=== PATIENT | female | born 1975 | race Caucasian/White ===

== ENCOUNTER 2018-03-02 11:52 | Inpatient (IN) ==
--- NOTE | 2018-03-02 12:27 | Emergency Department Note ---
Disposition Clinical Impression: Abscess of skin or subcutaneous tissue, Cellulitis Disposition: Admitted As Inpatient Condition: Fair Referrals: Caroline Calderón, CARMELLA [Primary Care Provider] - Forms: ED Satisfaction Letter Time of Disposition: 15:23 Skin/Abscess/FB HPI Chief complaint: ED Extremity Problem,Nontraumatic Stated complaint: left hand abscess Time Seen by Provider: 03/02/18 11:59 HPI Narrative: 42yo female with history of IV drug use, anxiety, depression presented to [facility] complaining of left hand pain and swelling. She reported that she was seen at urgent care around 02/02/2018 and was given doxycycline for what they diagnosed her with as cellulitis however, the swelling and redness continued to worsen. She was seen by her PCP 2 days ago and was told to go to [facility] ED to be admitted for IV antibiotics. She reports the swelling has improved however the redness and pain has worsened. She has new lesions she noticed today on the swollen hand. She is unable to completely close her hand or move her fingers due to the pain. Patient denies fever, chills, chest pain, shortness of breath, efficient change, abdominal pain, nausea, melena. 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 She still currently injects her Suboxone using IV. Of note, she reported in winter at [facility] she had been diagnosed with MRSA bacteremia and endocarditis for which she spent 3 months in hospital receiving IV antibiotics. She has had abscesses in the past and her armpit and popliteal region for which required incision and drainage and PO antibiotics. Home Medications Medication Instructions Recorded Confirmed FLUoxetine HCl [PROzac] 60 mg PO DAILY 02/12/18 02/12/18 HydrOXYzine Pamoate [Vistaril] 50 mg PO TID 02/12/18 02/12/18 Pantoprazole Sodium [Protonix] 40 mg PO DAILY 02/12/18 02/12/18 Quetiapine Fumarate [Seroquel] 200 mg PO BID 02/12/18 02/12/18 Gabapentin [Neurontin] 600 mg PO TID 03/02/18 03/02/18 Quetiapine Fumarate [SEROquel] 100 mg PO QAM 03/02/18 03/02/18 Allergies Allergy/AdvReac Type Severity Reaction Status Date / Time cefdinir [From Omnicef] Allergy Anaphylaxis Verified 03/02/18 17:12 promethazine [From Phenergan] Allergy Rash Verified 02/12/18 16:26 All systems ED: reviewed and negative except as stated. Review of Systems: As Per HPI Constitutional: Denies: fever, chills, weakness Eyes: Denies: vision change Cardiovascular: Denies: chest pain, palpitations Respiratory: Denies: cough, dyspnea, wheezes Gastrointestinal: Denies: abdominal pain, nausea, vomiting, diarrhea, melena Genitourinary: Denies: urgency, dysuria Integumentary: Reports: as per HPI, lesions, other (Left hand swelling, redness , pain, decreased range of motion) Neurological: Denies: headache Hematological/Lymphatic: Denies: easy bleeding Past Medical History - Past Medical History Medical history: Reports: GERD, other (Endocarditis) Surgical history: Reports: cholecystectomy, hysterectomy Psychiatric history: Reports: anxiety, bipolar, depression, schizophrenia 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 Absent: wheezes - Cardiovascular Cardiovascular exam: Present: regular rate, normal rhythm. Absent: systolic murmur - Abdominal Exam Abdominal exam: Present: soft, Non-Tender, normal bowel sounds - Extremities Exam Extremities exam: Absent: tenderness - Neurological Exam Neurological exam: Present: alert, oriented X3 - Psychiatric Psychiatric exam: Present: normal affect, normal mood - Skin Skin exam: Present: dry, erythema, other (Left dorsal surface, 3rd and 4th phalanx erythematous and edematous. Fluctuant lesion on left dorsal hand.) Course Course Narrative: 42yo female with history of IV drug use, anxiety, depression presented to [facility] complaining of left hand pain and swelling since 2017. She has a history of MRSA bacteremia with endocarditis and abscesses. She denies fever, chills, chest pain, shortness of breath, abdominal pain. She has decreased range of motion of left hand. Differential includes septic joint , abscess, cellulitis. Will give her IV vancomycin and IV fluids. Will order x -ray of left hand, CBC, BMP, blood cultures, lactic acid. Will consult orthopedic surgery and plan to admit due to high risk with history and clinical manifestations concerning for septic joint. - Reevaluation(s) Reevaluation #1: CBC and BMP unremarkable. And x-ray demonstrating diffuse left-hand tissue edema. Awaiting hand CT. Time: 12:00 Vital Signs Temperature 98.2 F 03/02/18 11:54 Pulse Rate 95 03/02/18 11:54 Respiratory Rate 16 03/02/18 11:54 Blood Pressure 118/81 03/02/18 11:54 O2 Sat by Pulse Oximetry 96 03/02/18 11:54 Temperature 98.2 F 03/02/18 12:28 Pulse Rate 95 03/02/18 12:28 Respiratory Rate 16 03/02/18 12:28 Blood Pressure 118/81 03/02/18 12:28 O2 Sat by Pulse Oximetry 96 03/02/18 12:28 Oxygen Delivery Oxygen Delivery Room Air Skin/Abscess/Foreign Body - MDM Narrative Medical decision making narrative: 42yo female with history of IV drug use, anxiety, depression presented to [facility] complaining of left hand pain and swelling since 2017. She has a history of MRSA bacteremia with endocarditis and abscesses. She denies fever, chills, chest pain, shortness of breath, abdominal pain. She has decreased range of motion of left hand. Differential includes septic joint , abscess, cellulitis, acute tenosynovitis. CBC, BMP, lactic acid unremarkable. Blood cultures Hand CT demonstrating dorsal surface cellulitis with no acute osseous abnormality. Despite and CT demonstrated no acute osseous abnormality there is still concern for acute tenosynovitis that she has decreased range of motion of her fingers and swelling. Patient was given IV vancomycin. Orthopedic surgery was consulted and evaluated the patient in the ED, they reportedly she does not need surgical intervention at this time but will follow along. Hospitalist accepted admission of the patient and requested that we give her dose of IV Zosyn. - Differential Diagnosis Likely: abscess of skin or subcutaneous tissue, cellulitis - Medical Records Medical records reviewed: Yes I reviewed the patient's medical records. - Lab Data Lab results reviewed: Yes I reviewed the patient's lab results. Result diagrams: 03/02/18 13:15 03/02/18 13:15 Lab Results 03/02/18 03/02/18 03/02/18 Range/Units 13:15 13:15 13:15 WBC 10.3 (4.3-11.1) K/mcL RBC 5.20 H (3.82-4.97) M/mcL Hgb 14.0 (11.5-15.4) g/dL Hct 43.4 (35.3-44.9) % MCV 83.5 (83.0-100.0) fL MCH 26.9 L (28.0-33.3) pg MCHC 32.3 (31.6-35.5) g/dL RDW 14.0 (11.5-14.5) % Plt Count 274 (140-400) K/mcL MPV 10.4 (9.4-12.4) fL Immature Gran % 0.2 (0-4) % Seg Neutrophils % 78.1 % Lymphocytes % 14.3 % Monocytes % 4.0 % Eosinophils % 3.0 % Basophils % 0.4 % Neutrophils # 8.0 (1.6-8.9) K/mcL Lymphocytes # 1.5 (0.6-4.6) K/mcL Monocytes # 0.4 (0.0-1.3) K/mcL Eosinophils # 0.3 (0.0-0.6) K/mcL Basophils # 0.0 (0.0-0.2) K/mcL ESR (0-15) mm/hr Sodium 139 (136-145) mEq/L Potassium 3.0 L (3.5-5.1) mEq/L Chloride 102 (98-107) mEq/L Carbon Dioxide 31 H (23-29) mEq/L BUN 9 (6-20) mg/dL Creatinine 0.63 (0.60-1.20) mg/dL Est GFR ( Amer) > 60 (> 60) Est GFR (Non-Af Amer) > 60 (> 60) BUN/Creatinine Ratio 14 (6-26) Glucose 107 H (70-105) mg/dL Calculated Osmolality 287 (280-300) Lactic Acid 1.4 (0.5-2.2) mmol/L Calcium 9.5 (8.6-10.3) mg/dL 03/02/18 Range/Units 13:15 WBC (4.3-11.1) K/mcL RBC (3.82-4.97) M/mcL Hgb (11.5-15.4) g/dL Hct (35.3-44.9) % MCV (83.0-100.0) fL MCH (28.0-33.3) pg MCHC (31.6-35.5) g/dL RDW (11.5-14.5) % Plt Count (140-400) K/mcL MPV (9.4-12.4) fL Immature Gran % (0-4) % Seg Neutrophils % % Lymphocytes % % Monocytes % % Eosinophils % % Basophils % % Neutrophils # (1.6-8.9) K/mcL Lymphocytes # (0.6-4.6) K/mcL Monocytes # (0.0-1.3) K/mcL Eosinophils # (0.0-0.6) K/mcL Basophils # (0.0-0.2) K/mcL ESR 47 H (0-15) mm/hr Sodium (136-145) mEq/L Potassium (3.5-5.1) mEq/L Chloride (98-107) mEq/L Carbon Dioxide (23-29) mEq/L BUN (6-20) mg/dL Creatinine (0.60-1.20) mg/dL Est GFR ( Amer) (> 60) Est GFR (Non-Af Amer) (> 60) BUN/Creatinine Ratio (6-26) Glucose (70-105) mg/dL Calculated Osmolality (280-300) Lactic Acid (0.5-2.2) mmol/L Calcium (8.6-10.3) mg/dL - Radiology Data Radiology results reviewed: Yes I reviewed the patient's radiology results. Hand X-Ray 03/02/18 12:40 IMPRESSION: Diffuse nonspecific soft tissue edema. No acute osseous abnormality. D/ / 03/02/2018 12:56:56 Cristopher Trejo MD / bcarter Interpreting Provider: Cristopher Trejo MD Hand CT 03/02/18 13:20 IMPRESSION: 1. Dorsal subcutaneous fat stranding compatible with cellulitis. No drainable fluid collection. 2. No acute osseous abnormality. D/ / Dex Feliz MD / Dex Feliz MD Interpreting Provider: Dex Feliz MD
[2018-03-02] MEDS ORDERED: 0.9 % Sodium Chloride 1,000 ML IVC ONE (12:39)
[2018-03-02 13:28] LABS: Basophils % 0.4 %; Eosinophils # 0.3 K/mcL (0.0-0.6); Hematocrit 43.4 % (35.3-44.9); Immature Granulocytes % 0.2 % (0-4); Lymphocytes # 1.5 K/mcL (0.6-4.6); Lymphocytes % 14.3 %; Mean Corpuscular HGB Conc 32.3 g/dL (31.6-35.5); Mean Corpuscular Hemoglobin 26.9 pg (28.0-33.3); Mean Corpuscular Volume 83.5 fL (83.0-100.0); Mean Platelet Volume 10.4 fL (9.4-12.4); Monocytes # 0.4 K/mcL (0.0-1.3); Platelet Count 274 K/mcL (140-400); Segmented Neutrophils % 78.1 %
[2018-03-02 13:54] LABS: BUN/Creatinine Ratio 14 (6-26); Blood Urea Nitrogen 9 mg/dL (6-20); Calcium 9.5 mg/dL (8.6-10.3); Carbon Dioxide 31 mEq/L (23-29); Chloride 102 mEq/L (98-107); Glucose 107 mg/dL (70-105); Osmolality,Calculated 287 (280-300); Sodium 139 mEq/L (136-145); eGFR For African Americans > 60 (> 60); eGFR For Non-African Americans > 60 (> 60)
--- NOTE | 2018-03-02 14:53 | Cat Scan Report ---
EXAMINATION: CT OF THE LEFT HAND WITHOUT CONTRAST 03/02/2018 2:45 pm TECHNIQUE: CT of the left hand was performed without the administration of intravenous contrast. Multiplanar reformatted images are provided for review. Dose modulation, iterative reconstruction, and/or weight based adjustment of the mA/kV was utilized to reduce the radiation dose to as low as reasonably achievable. COMPARISON: Left hand radiographs 03/02/2018. HISTORY ORDERING SYSTEM PROVIDED HISTORY: Left hand swollen, erythematous, concern for septic zeynep Additional tech notes: 15 Ongoing evaluation. FINDINGS: Bones: No fracture or dislocation. No suspicious lytic or blastic osseous lesion. Soft Tissue: Dorsal subcutaneous fat stranding of the distal forearm, wrist, and hand. No well-defined drainable fluid collection. No soft tissue gas or radiopaque foreign body. The visualized musculature is unremarkable. The visualized tendons are grossly intact without evidence of tenosynovitis. The neurovascular structures are unremarkable. The carpal tunnel is within normal limits. Joint: Mild 1st carpometacarpal degenerative changes. No evidence of joint effusion. No osseous erosion.
[2018-03-02 15:45] LABS: C-Reactive Protein 49 mg/L (Less than 10)
--- NOTE | 2018-03-02 15:51 | Orthopedic Consult Note ---
Date of Encounter: 03/02/18 Time of Encounter: 15:47 Assessment and Plan (1) Cellulitis of left hand Current Visit: Yes Status: Acute No obvious abscess or drainable fluid collection on CT. IV antibiotics as per hospitalist. No current plans for surgical intervention. Will reevaluate tomorrow. History of Present Illness HPI: Ms. Feliz is a 42 year old female history of IV drug use, anxiety, depression, bipolar presented to ED complaining of left hand pain and swelling for several weeks. She reported that she was previously seen at urgent care was given doxycycline for cellulitis. Swelling and redness worsened and so she was instructed to go to hospital for admission for IV antibiotics. Pain and swelling are over the dorsal hand and middle finger. Has difficulty closing hand and flexing fingers because of the pain. She is unable to completely close her hand or move her fingers due to the pain. Patient denies fever, chills, chest pain, shortness of breath. States that she is recovering IVDA but still injects her suboxone IV. Past Med Surg Social Fam HX - Past Medical History Medical history: GERD, other (Endocarditis) Additional medical history: endocarditis 2016 Psychiatric history: anxiety, bipolar, depression, schizophrenia - Past Surgical History Surgical History: cholecystectomy, hysterectomy - Social History Smoking Status: Current every day smoker Smokeless Tobacco Status: No Alcohol use: none Drug use: methamphetamine, IV Drug Use, other (Heroin) - Family History Mother Living Status: Still Living Hx Family Cardiac Disorders: Yes (hypertension) Hx Family Respiratory Disorders: No Hx Family Cancer: No Hx Family GI Disorders: No Hx Family Endocrine Disorder: Yes (Diabetes) Hx Family Neuromuscular Disorders: No Hx Family Neurologic Disorders: No Hx Family HEENT Disorders: No Hx Family Autoimmune Disorders: No Father Living Status: Still Living Hx Family Cardiac Disorders: No Hx Family Respiratory Disorders: No Hx Family Cancer: No Hx Family GI Disorders: No Hx Family Endocrine Disorder: No Hx Family Neuromuscular Disorders: No Hx Family Neurologic Disorders: No Hx Family HEENT Disorders: No Hx Family Autoimmune Disorders: No Medications and Allergies FLUoxetine HCl [PROzac] 60 mg PO DAILY 02/12/18 [History] HydrOXYzine Pamoate [Vistaril] 50 mg PO TID 02/12/18 [History] Pantoprazole Sodium [Protonix] 40 mg PO DAILY 02/12/18 [History] Quetiapine Fumarate [Seroquel] 200 mg PO HS 02/12/18 [History] Gabapentin [Neurontin] 600 mg PO TID 03/02/18 [History] Quetiapine Fumarate [SEROquel] 100 mg PO QAM 03/02/18 [History] 3 Allergy/AdvReac Type Severity Reaction Status Date / Time promethazine [From Phenergan] Allergy Rash Verified 02/12/18 16:26 All Systems Reviewed: The remainder of the systems were reviewed and are negative other than as noted in HPI Physical Exam - Constitutional Vitals: Temp Pulse Resp BP Pulse Ox 98.2 F 77 18 105/64 98 03/02/18 12:28 03/02/18 14:41 03/02/18 14:41 03/02/18 14:41 03/02/18 14:41 Exam: Consult Exam: Constitutional -Vitals reviewed -The patient is well developed and well nourished. Psychiatric -The patient is alert and oriented x 3. Respiratory: -Respiratory effort normal Abdomen: -Soft abdomen -Non tender -Non distended: Left upper extremity: -No deformities. Dorsal swelling over hand. TTP over dorsal hand and index and middle fingers. -Erythema over middle and index fingers. No tenderness along flexor sheath -No significant pain with passive motion of the shoulder, elbow, wrist, and fingers within the limits of the bed. -Able to make an "OK" sign, cross the index and long fingers, and extend the thumb. -Sensation grossly intact to light touch throughout the median, radial, and ulnar distributions. -Radial pulse is present; Fingers have good capillary refill. Right upper extremity: -No deformities. The overlying skin is intact. No obvious signs of acute trauma. -No tenderness to palpation throughout. -No significant pain with passive motion of the shoulder, elbow, wrist, and fingers within the limits of the bed. -Able to make an "OK" sign, cross the index and long fingers, and extend the thumb. -Sensation grossly intact to light touch throughout the median, radial, and ulnar distributions. -Radial pulse is present; Fingers have good capillary refill. Left lower extremity: -No deformities. The overlying skin is intact. No obvious signs of acute trauma. -No tenderness to palpation throughout. -No pain with passive motion of the hip, knee, ankle, and toes within the limits of the bed. -No pain with axial loading of the thigh. -Able to dorsiflex and plantarflex the ankle and toes. -Sensation is grossly intact to light touch throughout the sural, saphenous, superficial peroneal, and deep peroneal distributions. -Toes have good capillary refill. Right lower extremity: -No deformities. The overlying skin is intact. No obvious signs of acute trauma. -No tenderness to palpation throughout. -No pain with passive motion of the hip, knee, ankle, and toes within the limits of the bed. -No pain with axial loading of the thigh. -Able to dorsiflex and plantarflex the ankle and toes. -Sensation is grossly intact to light touch throughout the sural, saphenous, superficial peroneal, and deep peroneal distributions. -Toes have good capillary refill. CT of L hand reviewed and shows subcutaneous dorsal fat stranding of hand without obvious abscess. No soft tissue gas. No bony destruction. Results - Labs Result Diagrams: 03/02/18 13:15 03/02/18 13:15 Labs: Abnormal lab results RBC 5.20 M/mcL (3.82-4.97) H 03/02/18 13:15 MCH 26.9 pg (28.0-33.3) L 03/02/18 13:15 ESR 47 mm/hr (0-15) H 03/02/18 13:15 Potassium 3.0 mEq/L (3.5-5.1) L 03/02/18 13:15 Carbon Dioxide 31 mEq/L (23-29) H 03/02/18 13:15 Glucose 107 mg/dL (70-105) H 03/02/18 13:15 C-Reactive Protein 49 mg/L (Less than 10) H 03/02/18 13:15 All other labs normal. - Diagnostic results Wrist/Hand x-ray: report reviewed, image reviewed Wrist/Hand CT: report reviewed, image reviewed Consult Discharge Plan - Plan Referrals: Caroline Calderón, SENIOR LEAD DEVELOPER [Primary Care Provider] -
[2018-03-02] MEDS ORDERED: Piperacillin/Tazobactam 3.375 GM in 0.9 % Sodium Chloride Mini Bag 100 ML IVPB SCH (16:00)
--- NOTE | 2018-03-02 16:06 | Emergency Department Note ---
Disposition Clinical Impression: Abscess of skin or subcutaneous tissue, Cellulitis Disposition: Admitted As Inpatient Condition: Fair General Adult HPI - General Chief complaint: ED Extremity Problem,Nontraumatic Stated complaint: left hand abscess Time Seen by Provider: 03/02/18 11:59 Source: patient Limitations: no limitations, language barrier - History of Present Illness Pain Scale: 8 - Related Data Home Medications Medication Instructions Recorded Confirmed FLUoxetine HCl [PROzac] 60 mg PO DAILY 02/12/18 03/02/18 HydrOXYzine Pamoate [Vistaril] 50 mg PO TID 02/12/18 03/02/18 Pantoprazole Sodium [Protonix] 40 mg PO DAILY 02/12/18 03/02/18 Quetiapine Fumarate [Seroquel] 200 mg PO HS 02/12/18 03/02/18 Gabapentin [Neurontin] 600 mg PO TID 03/02/18 03/02/18 Quetiapine Fumarate [SEROquel] 100 mg PO QAM 03/02/18 03/02/18 Allergies Allergy/AdvReac Type Severity Reaction Status Date / Time cefdinir [From Omnicef] Allergy Anaphylaxis Verified 03/02/18 17:12 promethazine [From Phenergan] Allergy Rash Verified 02/12/18 16:26 Constitutional: Denies: fever, chills, weakness Eyes: Denies: vision change Cardiovascular: Denies: chest pain, palpitations Respiratory: Denies: cough, dyspnea, wheezes Gastrointestinal: Denies: abdominal pain, nausea, vomiting, diarrhea, melena Genitourinary: Denies: urgency, dysuria Integumentary: Reports: as per HPI, lesions, other (Left hand swelling, redness , pain, decreased range of motion) Neurological: Denies: headache Past Medical History - Past Medical History Medical history: Reports: GERD, other (Endocarditis) Surgical history: Reports: cholecystectomy, hysterectomy Psychiatric history: Reports: anxiety, bipolar, depression, 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 - Social History Smoking Status: Current every day smoker Smokeless Tobacco Status: No Alcohol use: Reports: none Drug use: Reports: methamphetamine, IV Drug Use, other (Heroin) Physical Exam - General Limitations: no limitations, language barrier General appearance: alert, in no apparent distress Course Vital Signs Temperature 98.2 F 03/02/18 11:54 Pulse Rate 95 03/02/18 11:54 Respiratory Rate 16 03/02/18 11:54 Blood Pressure 118/81 03/02/18 11:54 O2 Sat by Pulse Oximetry 96 03/02/18 11:54 Temperature 98.6 F 03/02/18 16:57 Pulse Rate 82 03/02/18 16:57 Respiratory Rate 14 03/02/18 16:57 Blood Pressure 137/80 03/02/18 16:57 O2 Sat by Pulse Oximetry 98 03/02/18 16:57 Oxygen Delivery Oxygen Delivery Nasal Cannula Medical Decision Making - Lab Data Result diagrams: 03/02/18 13:15 03/02/18 13:15 Lab Results 03/02/18 03/02/18 03/02/18 Range/Units 13:15 13:15 13:15 WBC 10.3 (4.3-11.1) K/mcL RBC 5.20 H (3.82-4.97) M/mcL Hgb 14.0 (11.5-15.4) g/dL Hct 43.4 (35.3-44.9) % MCV 83.5 (83.0-100.0) fL MCH 26.9 L (28.0-33.3) pg MCHC 32.3 (31.6-35.5) g/dL RDW 14.0 (11.5-14.5) % Plt Count 274 (140-400) K/mcL MPV 10.4 (9.4-12.4) fL Immature Gran % 0.2 (0-4) % Seg Neutrophils % 78.1 % Lymphocytes % 14.3 % Monocytes % 4.0 % Eosinophils % 3.0 % Basophils % 0.4 % Neutrophils # 8.0 (1.6-8.9) K/mcL Lymphocytes # 1.5 (0.6-4.6) K/mcL Monocytes # 0.4 (0.0-1.3) K/mcL Eosinophils # 0.3 (0.0-0.6) K/mcL Basophils # 0.0 (0.0-0.2) K/mcL ESR (0-15) mm/hr Sodium 139 (136-145) mEq/L Potassium 3.0 L (3.5-5.1) mEq/L Chloride 102 (98-107) mEq/L Carbon Dioxide 31 H (23-29) mEq/L BUN 9 (6-20) mg/dL Creatinine 0.63 (0.60-1.20) mg/dL Est GFR ( Amer) > 60 (> 60) Est GFR (Non-Af Amer) > 60 (> 60) BUN/Creatinine Ratio 14 (6-26) Glucose 107 H (70-105) mg/dL Calculated Osmolality 287 (280-300) Lactic Acid 1.4 (0.5-2.2) mmol/L Calcium 9.5 (8.6-10.3) mg/dL C-Reactive Protein 49 H (Less than 10) mg/L 03/02/18 Range/Units 13:15 WBC (4.3-11.1) K/mcL RBC (3.82-4.97) M/mcL Hgb (11.5-15.4) g/dL Hct (35.3-44.9) % MCV (83.0-100.0) fL MCH (28.0-33.3) pg MCHC (31.6-35.5) g/dL RDW (11.5-14.5) % Plt Count (140-400) K/mcL MPV (9.4-12.4) fL Immature Gran % (0-4) % Seg Neutrophils % % Lymphocytes % % Monocytes % % Eosinophils % % Basophils % % Neutrophils # (1.6-8.9) K/mcL Lymphocytes # (0.6-4.6) K/mcL Monocytes # (0.0-1.3) K/mcL Eosinophils # (0.0-0.6) K/mcL Basophils # (0.0-0.2) K/mcL ESR 47 H (0-15) mm/hr Sodium (136-145) mEq/L Potassium (3.5-5.1) mEq/L Chloride (98-107) mEq/L Carbon Dioxide (23-29) mEq/L BUN (6-20) mg/dL Creatinine (0.60-1.20) mg/dL Est GFR ( Amer) (> 60) Est GFR (Non-Af Amer) (> 60) BUN/Creatinine Ratio (6-26) Glucose (70-105) mg/dL Calculated Osmolality (280-300) Lactic Acid (0.5-2.2) mmol/L Calcium (8.6-10.3) mg/dL C-Reactive Protein (Less than 10) mg/L Attestation Statement - Attestation Attestation: I examined this patient and my medical decision-making was reviewed with the Resident Physician, Dr. Cordoba. I agree with the documented findings, disposition and treatment plan as described except to the extent set forth below. Patient is a 42-year-old white female with a history of IV drug abuse, prior history of endocarditis and bacteremia secondary to IV drug use remotely, who presents to the emergency department today with complaints of left hand pain swelling and infection that she has had intermittently for the past 4 weeks. Patient was initially seen at an urgent care a month ago and prescribed doxycycline for an isolated skin abscess to the dorsum of her left hand. Patient states that she did incise this at home herself to help with drainage in that it has improved despite that she continue to have soft tissue swelling and erythema with warmth to touch to the dorsum of the entire left hand extending into the third and fourth digits of her left fingers. Third fourth fingers are diffusely swollen she has erythema to both the dorsal surface as well as the palmar surface at the joint of the third finger. Patient with fluctuant area overlying her third dorsal MCP area. Patient has difficulty with full flexion and pain on passive extension of both third and fourth fingers. Patient is right-hand dominant. Patient states these changes been present for the past 48 hours and gradually worsened. She was seen by her doctor 2 days ago and recommended she come to the emergency department at that time but did not come for evaluation until today. She denies any fevers or chills, no other associated symptoms. I agree with patient's physical exam findings as documented. Vital signs are stable she is hemodynamically stable in no acute distress. It is noted the patient had track rubi to both bilateral antecubital areas from injecting Suboxone. No surrounding erythema or abscesses are seen in these areas. Patient had an IV saline well-established blood cultures were obtained and IV antibiotics were initiated for possible joint infection versus flexor tenosynovitis. Patient had initial plain film imaging of the hand which was negative for any bony injury or foreign body. We proceeded with a CT of the left hand which shows evidence of extensive cellulitis but no evidence at this time of osteomyelitis or tenosynovitis. Lab evaluation is unremarkable with the exception of mild elevation in sedimentation rate and CRP. Case was discussed with Dr. Uriostegui who is on-call for orthopedics is been consulate to see the patient from the ED. Actually came down and saw the patient here. Patient was admitted to the hospitalist service for further evaluation and management. Patient remains hemodynamically stable at this time.
[2018-03-02] MEDS ORDERED: Acetaminophen 325 MG TABLET PO PRN (16:13)
[2018-03-02] MEDS ORDERED: Naloxone 0.4 MG/ML INJ IVP PRN (16:13)
[2018-03-02] MEDS ORDERED: Ondansetron 4 MG/2 ML VIAL IVP PRN (16:13)
[2018-03-02] MEDS ORDERED: hydrOXYzine pamoate 25 MG CAPSULE PO PRN (16:16)
--- NOTE | 2018-03-02 17:03 | Internal Med History&Physical ---
Date of Encounter: 03/02/18 Time of Encounter: 15:45 Internal Medicine - H&P: HPI Chief complaint: Left hand abscess and cellulitis Admitted From: Emergency Dept Plans for Post Hospital Care: Home History of present illness: Ms. 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 Patient stated almost 3 to 4 weeks ago she noticed a small swelling on the left dorsum of the hand and base of 3rd and 4th fingers. Patient did follow-up with urgent care center where they placed her on doxycycline a week ago. However her symptoms have not improved and they are worsening now. Patient denied of any fever. She denied of any active IV drug usage. Past Med Surg Social Fam HX - Past Medical History Medical history: GERD, other (Endocarditis) Additional medical history: endocarditis 2015 Psychiatric history: anxiety, bipolar, depression, schizophrenia - Past Surgical History Surgical History: cholecystectomy, hysterectomy - Social History Smoking Status: Current every day smoker Smokeless Tobacco Status: No Alcohol use: none Drug use: methamphetamine, IV Drug Use, other (Heroin) - Family History Mother Living Status: Still Living Hx Family Cardiac Disorders: Yes (hypertension) Hx Family Respiratory Disorders: No Hx Family Cancer: No Hx Family GI Disorders: No Hx Family Endocrine Disorder: Yes (Diabetes) Hx Family Neuromuscular Disorders: No Hx Family Neurologic Disorders: No Hx Family HEENT Disorders: No Hx Family Autoimmune Disorders: No Father Living Status: Still Living Hx Family Cardiac Disorders: No Hx Family Respiratory Disorders: No Hx Family Cancer: No Hx Family GI Disorders: No Hx Family Endocrine Disorder: No Hx Family Neuromuscular Disorders: No Hx Family Neurologic Disorders: No Hx Family HEENT Disorders: No Hx Family Autoimmune Disorders: No Internal Medicine - H&P: Meds FLUoxetine HCl [PROzac] 60 mg PO DAILY 02/12/18 [History] HydrOXYzine Pamoate [Vistaril] 50 mg PO TID 02/12/18 [History] Pantoprazole Sodium [Protonix] 40 mg PO DAILY 02/12/18 [History] Quetiapine Fumarate [Seroquel] 200 mg PO HS 02/12/18 [History] Gabapentin [Neurontin] 600 mg PO TID 03/02/18 [History] Quetiapine Fumarate [SEROquel] 100 mg PO QAM 03/02/18 [History] 3 Allergy/AdvReac Type Severity Reaction Status Date / Time cefdinir [From Omnicef] Allergy Anaphylaxis Verified 03/02/18 17:12 promethazine [From Phenergan] Allergy Rash Verified 02/12/18 16:26 All Systems PM: A 10-system review of systems was performed and is negative for pertinent findings except as documented above in the HPI. Review of systems: All the systems are reviewed everything is benign except the systems and symptoms I mentioned in the history of present illness - Constitutional Vitals: Temp Pulse Resp BP Pulse Ox 98.2 F 77 18 125/98 98 03/02/18 16:00 03/02/18 14:41 03/02/18 16:00 03/02/18 16:00 03/02/18 14:41 General appearance: Present: A&O X 3, no acute distress, answers questions appropriately - Head Head exam: Present: atraumatic, normal inspection - Neck Neck exam general surgery: Present: supple - Respiratory Respiratory exam: Present: CTAB. Absent: accessory muscle use, rales, rhonchi, wheezes - Cardiovascular Cardiovascular exam: Present: RRR, +S1, +S2. Absent: diastolic murmur, gallop, rubs, systolic murmur - GI/Abdominal GI/Abdominal exam: Present: normal bowel sounds, soft. Absent: rebound, rigid, tenderness - Extremities Exam Extremities exam: Absent: calf tenderness, pedal edema, tenderness Additional comments: She does have moderate swelling of the left wrist as well as significant ertyhema noticed. Small fluid collection noticed at the distal part and base of 3rd finger. Able to flex Okay with limited range of motion of the 3rd and 4th due to edema and swelling - Expanded Upper Extremities Exam Hand wrist exam: Present: erythema (Dorsum the left hand), swelling, tenderness. Absent: full ROM - Back Exam Back exam: Absent: CVA tenderness (L), CVA tenderness (R) - Neurological Exam Neurological exam: Present: alert, oriented X3 - Psychiatric Psychiatric exam: Present: normal affect, normal mood Internal Med - H&P Results - Labs CBC & Chem 7: 03/02/18 13:15 03/02/18 13:15 - Assessment and plan (1) Cellulitis of left hand Current Visit: Yes Status: Acute Assessment and plan: [facility]ray which showed diffuse nonspecific soft tissue edema no fractures noticed reviewed her CT of the hand showed mild 1st carpal metacarpal degenerative changes, no joint decision noticed. No osseous erosion noticed no fluid collection noticed ESR and CRP slightly elevated since patient has history of MRSA bacteremia in the past, will place her on isolation started on broad-spectrum antibiotic vancomycin and Zosyn Pt was evaluated b Ortho, No I & D recommend at this point cont local wound care, hand elevation, warm / cold compressions (2) IV drug abuse Current Visit: No Status: Chronic Assessment and plan: Under remission patient used to be on Suboxone therapy however now she is off the Suboxone therapy too (3) Anxiety Current Visit: Yes Status: Acute Assessment and plan: Resumed home medications (4) Tobacco dependence Current Visit: Yes Status: Acute Assessment and plan: Counseled to quit smoking placed on nicotine patch (5) Hepatitis C Current Visit: No Status: Acute Assessment and plan: Need to follow with PCP as an outpatient Qualifiers: Viral hepatitis chronicity: chronic Hepatic coma status: without hepatic coma Qualified Code(s): B18.2 - Chronic viral hepatitis C - Time Spent With Patient Total time spent is greater than 50% in coordination of care (as documented) at patient's floor/unit and/or counseling patient:
[2018-03-02] MEDS: Piperacillin/Tazobactam 3.375 GM in 0.9 % Sodium Chloride Mini Bag 100 ML IVPB SCH (17:50)
[2018-03-02] MEDS: 0.9 % Sodium Chloride 1,000 ML IVC SCH (17:50)
[2018-03-02] MEDS: *HR* HYDROcodone/Acet 5/325 mg TABLET PO PRN (17:51)
[2018-03-02] MEDS: Gabapentin 300 MG CAPSULE PO SCH (19:48)
[2018-03-03 01:23] LABS: Basophils % 0.4 %; Eosinophils # 0.3 K/mcL (0.0-0.6); Eosinophils % 3.8 %; Hematocrit 38.3 % (35.3-44.9); Immature Granulocytes % 0.4 % (0-4); Lymphocytes # 1.6 K/mcL (0.6-4.6); Lymphocytes % 22.3 %; Mean Corpuscular HGB Conc 32.1 g/dL (31.6-35.5); Mean Corpuscular Hemoglobin 27.3 pg (28.0-33.3); Mean Corpuscular Volume 84.9 fL (83.0-100.0); Mean Platelet Volume 10.7 fL (9.4-12.4); Monocytes # 0.4 K/mcL (0.0-1.3); Monocytes % 6.2 %; Neutrophils # 4.7 K/mcL (1.6-8.9); Platelet Count 232 K/mcL (140-400); Red Blood Count 4.51 M/mcL (3.82-4.97); Segmented Neutrophils % 66.9 %
[2018-03-03 01:24] LABS: Hemoglobin 12.3 g/dL (11.5-15.4)
[2018-03-03 01:36] LABS: BUN/Creatinine Ratio 16 (6-26); Blood Urea Nitrogen 11 mg/dL (6-20); Calcium 8.3 mg/dL (8.6-10.3); Carbon Dioxide 24 mEq/L (23-29); Chloride 114 mEq/L (98-107); Glucose 97 mg/dL (70-105); Osmolality,Calculated 293 (280-300); Potassium 3.2 mEq/L (3.5-5.1); Sodium 142 mEq/L (136-145); eGFR For African Americans > 60 (> 60); eGFR For Non-African Americans > 60 (> 60)
[2018-03-03] MEDS: Piperacillin/Tazobactam 3.375 GM in 0.9 % Sodium Chloride Mini Bag 100 ML IVPB SCH ×3 (02:30→17:35)
[2018-03-03] MEDS: 0.9 % Sodium Chloride 1,000 ML IVC SCH (02:31)
[2018-03-03] MEDS: *HR* Enoxaparin 40 MG/0.4 ML SYRINGE SQ SCH (05:10)
[2018-03-03] MEDS: Gabapentin 300 MG CAPSULE PO SCH ×3 (10:03→19:26)
[2018-03-03] MEDS: *HR* HYDROcodone/Acet 5/325 mg TABLET PO PRN (10:04)
[2018-03-03] MEDS: FLUoxetine HCl Oral Soln 20 MG/5 ML UDC PO SCH (10:04)
[2018-03-03] MEDS: Nicotine 21 MG PATCH.TD24 TD SCH (10:05)
--- NOTE | 2018-03-03 11:47 | Orthopedics Progress Note ---
Date of Encounter: 03/03/18 Time of Encounter: 11:44 - Assessment and Plan (1) Cellulitis of left hand Current Visit: Yes Status: Acute Subjective Interval history: Still with erythema and fluctuant area over left middle finger MCP joint. Remainder over erythema improving. AFVSS GEN: NAD, AAOx3 LUE: Erythema and fluctuant area over left middle finger MCP joint. Able to passively and actively flex and extend digits with minimal pain DNVI with sensation and motor exam intact over M/R/U/AIN/PIN A/P: 42 yo F with L hand cellulitis With the persistent of the fluctuant area over the 3rd MCP, irrigation and excisional debridement of this area was performed this morning. The area was steriley prepped and draped with betadine. Incision was made over the abscess and the skin edges were sharply excised. No gross purulent material was expressed. Deep soft tissue adhesions were broken up. Cultures were taken. The wound was thoroughly irrigated with 1 L NS and packed open. Clean dressing then placed. She tolerated the procedure well. Continue IV antibiotics per hospitalist, follow ctx Daily dressing changes Ok for diet Objective Vital signs: Vital Signs Temp Pulse Resp BP Pulse Ox 03/03/18 10:31 98.9 F 80 18 109/67 98 03/03/18 09:55 95 03/03/18 06:31 98.8 F 69 16 120/79 95 03/03/18 00:40 98.4 F 88 12 119/73 96 03/02/18 18:44 98.4 F 86 14 120/74 93 03/02/18 16:57 98.6 F 82 14 137/80 98 Intake and Output 03/02/18 03/03/18 03/03/18 23:59 07:59 15:59 Intake Total 100 / 100 1350 / 1350 600 / 600 Balance 100 / 100 1350 / 1350 600 / 600 Intake: IV Fluids 100 / 100 1350 / 1350 0.9 % Sodium Chloride 1,000 ML 1000 / 1000 @ 125 mls/hr IVC .Q8H BEN Rx#: [id number] Zosyn 3.375 GM In 0.9 % Sodium 100 / 100 100 / 100 Chloride (Mini-Bag +) 100 ML @ 25 mls/hr IVPB Q8H BEN Rx#: [id number] Vancocin 1,000 MG In 0.9 % 250 / 250 Sodium Chloride 250 ML @ 167 mls/hr IVPB Q12H BEN Rx#: [id number] Oral 600 / 600 Other: Meal Breakfast Percent of Meal Consumed 100% # Voids 1 1 - Labs CBC & BMP: 03/03/18 01:05 03/03/18 01:05 Labs: Abnormal lab results MCH 27.3 pg (28.0-33.3) L 03/03/18 01:05 ESR 47 mm/hr (0-15) H 03/02/18 13:15 Potassium 3.2 mEq/L (3.5-5.1) L 03/03/18 01:05 Chloride 114 mEq/L (98-107) H 03/03/18 01:05 Calcium 8.3 mg/dL (8.6-10.3) L 03/03/18 01:05 C-Reactive Protein 49 mg/L (Less than 10) H 03/02/18 13:15 Consult Discharge Plan - Plan Referrals: Caroline Calderón, PROCESS EQUIPMENT OPERATOR [Primary Care Provider] -
--- NOTE | 2018-03-03 16:51 | Internal Med Progress Note ---
Date of Encounter: 03/03/18 Time of Encounter: 11:00 - Assessment and plan (1) Cellulitis of left hand Current Visit: Yes Status: Acute Assessment and plan: Left hand x-ray which showed diffuse nonspecific soft tissue edema no fractures noticed CT of the hand showed mild 1st carpal metacarpal degenerative changes, no joint decision noticed. Orthopedics consulted and decision and drainage with irrigation was done this morning and cultures taken. Will continue broad-spectrum antibiotics with vancomycin and Zosyn (2) Hepatitis C Current Visit: No Status: Acute Assessment and plan: Follow with PCP as an outpatient Qualifiers: Viral hepatitis chronicity: chronic Hepatic coma status: without hepatic coma Qualified Code(s): B18.2 - Chronic viral hepatitis C (3) IV drug abuse Current Visit: No Status: Chronic Assessment and plan: Under remission patient used to be on Suboxone therapy (4) Tobacco dependence Current Visit: Yes Status: Acute Assessment and plan: Nicotine replacement (5) Anxiety Current Visit: Yes Status: Acute Assessment and plan: Continue home medications - Time Spent With Patient Total time spent is greater than 50% in coordination of care (as documented) at patient's floor/unit and/or counseling patient: - Subjective Interval history: Patient with left hand discomfort status post incision and drainage by orthopedics this morning - Constitutional Vitals: Temp Pulse Resp BP Pulse Ox 98.5 F 77 16 117/53 94 03/03/18 15:28 03/03/18 15:28 03/03/18 15:28 03/03/18 15:28 03/03/18 15:28 General appearance: Present: A&O X 3, no acute distress, answers questions appropriately - Respiratory Respiratory exam: Present: CTAB. Absent: accessory muscle use, rales, rhonchi, wheezes - Cardiovascular Cardiovascular exam: Present: RRR, +S1, +S2. Absent: diastolic murmur, gallop, rubs, systolic murmur - Expanded Upper Extremities Exam Hand wrist exam: Present: swelling (Left hand edema) Internal Medicine: Result - Labs CBC & Chem 7: 03/03/18 01:05 03/03/18 01:05 Labs: Short CBC 03/03/18 Range/Units 01:05 WBC 7.1 (4.3-11.1) K/mcL Hgb 12.3 D (11.5-15.4) g/dL Hct 38.3 (35.3-44.9) % Plt Count 232 (140-400) K/mcL Neutrophils # 4.7 (1.6-8.9) K/mcL BMP 03/03/18 01:05 Sodium 142 Potassium 3.2 L Chloride 114 H Carbon Dioxide 24 BUN 11 Creatinine 0.70 Glucose 97 Calcium 8.3 L Consult Discharge Plan - Plan Referrals: Caroline Calderón, GOLF COURSE PATROLLER [Primary Care Provider] -
[2018-03-04] MEDS: Piperacillin/Tazobactam 3.375 GM in 0.9 % Sodium Chloride Mini Bag 100 ML IVPB SCH ×3 (01:49→18:18)
[2018-03-04] MEDS: *HR* Enoxaparin 40 MG/0.4 ML SYRINGE SQ SCH (04:48)
--- NOTE | 2018-03-04 09:10 | Orthopedics Progress Note ---
Date of Encounter: 03/04/18 Time of Encounter: 09:08 - Assessment and Plan (1) Cellulitis of left hand Current Visit: Yes Status: Acute Subjective Interval history: Erythema and pain improving. AFVSS GEN: NAD, AAOx3 LUE: Erythema over middle finger MCP joint improving. Able to passively and actively flex and extend digits with minimal pain DNVI with sensation and motor exam intact over M/R/U/AIN/PIN A/P: 42 yo F with L hand cellulitis Continue IV antibiotics per hospitalist, follow ctx Daily dressing changes Ok for diet, no plans for further surgery Objective Vital signs: Vital Signs Temp Pulse Resp BP Pulse Ox 03/04/18 07:41 95 03/04/18 06:41 98.0 F 75 16 116/73 95 03/03/18 23:10 98.9 F 80 18 104/67 94 03/03/18 18:30 98.2 F 82 15 122/75 94 03/03/18 15:28 98.5 F 77 16 117/53 94 03/03/18 10:31 98.9 F 80 18 109/67 98 03/03/18 09:55 95 Intake and Output 03/03/18 03/04/18 03/04/18 23:59 07:59 15:59 Intake Total 630 / 630 100 / 100 Balance 630 / 630 100 / 100 Intake: IV Fluids 100 / 100 100 / 100 Zosyn 3.375 GM In 0.9 % Sodium 100 / 100 100 / 100 Chloride (Mini-Bag +) 100 ML @ 25 mls/hr IVPB Q8H BEN Rx#: [id number] Oral 530 / 530 Other: Meal Dinner Percent of Meal Consumed 100% # Voids 1 1 - Labs CBC & BMP: 03/03/18 01:05 03/03/18 01:05 Labs: Abnormal lab results MCH 27.3 pg (28.0-33.3) L 03/03/18 01:05 ESR 47 mm/hr (0-15) H 03/02/18 13:15 Potassium 3.2 mEq/L (3.5-5.1) L 03/03/18 01:05 Chloride 114 mEq/L (98-107) H 03/03/18 01:05 Calcium 8.3 mg/dL (8.6-10.3) L 03/03/18 01:05 C-Reactive Protein 49 mg/L (Less than 10) H 03/02/18 13:15 Vancomycin Trough 29 mcg/mL (5-10) H 03/04/18 00:09 Consult Discharge Plan - Plan Referrals: Caroline Calderón, AUTOMATIC STEEL TIE ADJUSTER [Primary Care Provider] -
[2018-03-04] MEDS: Nicotine 21 MG PATCH.TD24 TD SCH (10:19)
[2018-03-04] MEDS: Gabapentin 300 MG CAPSULE PO SCH ×3 (10:19→19:52)
[2018-03-04] MEDS: FLUoxetine HCl Oral Soln 20 MG/5 ML UDC PO SCH (10:19)
[2018-03-04 10:27] LABS: Basophils % 0.4 %; Eosinophils # 0.2 K/mcL (0.0-0.6); Eosinophils % 3.1 %; Hematocrit 38.4 % (35.3-44.9); Hemoglobin 12.5 g/dL (11.5-15.4); Immature Granulocytes % 0.7 % (0-4); Lymphocytes # 1.6 K/mcL (0.6-4.6); Lymphocytes % 21.1 %; Mean Corpuscular HGB Conc 32.6 g/dL (31.6-35.5); Mean Corpuscular Hemoglobin 27.1 pg (28.0-33.3); Mean Corpuscular Volume 83.3 fL (83.0-100.0); Mean Platelet Volume 10.6 fL (9.4-12.4); Monocytes # 0.4 K/mcL (0.0-1.3); Monocytes % 5.4 %; Neutrophils # 5.1 K/mcL (1.6-8.9); Platelet Count 245 K/mcL (140-400); Red Blood Count 4.61 M/mcL (3.82-4.97); Segmented Neutrophils % 69.3 %
[2018-03-04 10:43] LABS: BUN/Creatinine Ratio 17 (6-26); Blood Urea Nitrogen 11 mg/dL (6-20); Calcium 8.6 mg/dL (8.6-10.3); Carbon Dioxide 23 mEq/L (23-29); Chloride 114 mEq/L (98-107); Glucose 128 mg/dL (70-105); Osmolality,Calculated 293 (280-300); Potassium 3.4 mEq/L (3.5-5.1); Sodium 141 mEq/L (136-145); eGFR For African Americans > 60 (> 60); eGFR For Non-African Americans > 60 (> 60)
[2018-03-04] MEDS ORDERED: Aminoglycoside Consult 1 EACH MC ONE (13:15)
[2018-03-04 14:31] LABS: BUN/Creatinine Ratio 18 (6-26); Blood Urea Nitrogen 12 mg/dL (6-20); eGFR For African Americans > 60 (> 60); eGFR For Non-African Americans > 60 (> 60)
--- NOTE | 2018-03-04 16:29 | Internal Med Progress Note ---
Date of Encounter: 03/04/18 Time of Encounter: 11:00 - Assessment and plan (1) Cellulitis of left hand Current Visit: Yes Status: Acute Assessment and plan: Left hand x-ray which showed diffuse nonspecific soft tissue edema no fractures noticed CT of the hand showed mild 1st carpal metacarpal degenerative changes, no joint decision noticed. Orthopedics consulted and decision and drainage with irrigation on 03/03/18; cultures pending Will continue broad-spectrum antibiotics with vancomycin and Zosyn Orthopedics following in appreciate any additional recommendations. (2) Hepatitis C Current Visit: No Status: Acute Assessment and plan: Follow with PCP as an outpatient Qualifiers: Viral hepatitis chronicity: chronic Hepatic coma status: without hepatic coma Qualified Code(s): B18.2 - Chronic viral hepatitis C (3) IV drug abuse Current Visit: No Status: Chronic Assessment and plan: Under remission patient used to be on Suboxone therapy (4) Tobacco dependence Current Visit: Yes Status: Acute Assessment and plan: Nicotine replacement (5) Anxiety Current Visit: Yes Status: Acute Assessment and plan: Continue home medications - Time Spent With Patient Total time spent is greater than 50% in coordination of care (as documented) at patient's floor/unit and/or counseling patient: - Subjective Interval history: Patient with left hand discomfort status post incision and drainage on 03/03/18 by orthopedics; cultures pending - Constitutional Vitals: Temp Pulse Resp BP Pulse Ox 98.9 F 86 16 131/84 95 03/04/18 15:07 03/04/18 15:07 03/04/18 15:07 03/04/18 15:07 03/04/18 15:07 General appearance: Present: A&O X 3, no acute distress, answers questions appropriately - Respiratory Respiratory exam: Present: CTAB. Absent: accessory muscle use, rales, rhonchi, wheezes - Cardiovascular Cardiovascular exam: Present: RRR, +S1, +S2. Absent: diastolic murmur, gallop, rubs, systolic murmur - Expanded Upper Extremities Exam Hand wrist exam: Present: swelling (Patient with decreased swelling of left hand ) Internal Medicine: Result - Labs CBC & Chem 7: 03/04/18 10:12 03/04/18 13:58 Labs: Short CBC 03/04/18 Range/Units 10:12 WBC 7.4 (4.3-11.1) K/mcL Hgb 12.5 (11.5-15.4) g/dL Hct 38.4 (35.3-44.9) % Plt Count 245 (140-400) K/mcL Neutrophils # 5.1 (1.6-8.9) K/mcL BMP 03/04/18 03/04/18 10:12 13:58 Sodium 141 Potassium 3.4 L Chloride 114 H Carbon Dioxide 23 BUN 11 12 Creatinine 0.65 0.66 Glucose 128 H Calcium 8.6 Consult Discharge Plan - Plan Referrals: Caroline Calderón, CORRUGATOR [Primary Care Provider] -
[2018-03-04] MEDS: *HR* HYDROcodone/Acet 5/325 mg TABLET PO PRN ×2 (16:42→23:32)
[2018-03-05] MEDS: Piperacillin/Tazobactam 3.375 GM in 0.9 % Sodium Chloride Mini Bag 100 ML IVPB SCH ×2 (01:05→08:53)
[2018-03-05] MEDS: *HR* Enoxaparin 40 MG/0.4 ML SYRINGE SQ SCH (05:21)
--- NOTE | 2018-03-05 08:13 | Orthopedics Progress Note ---
Date of Encounter: 03/05/18 Time of Encounter: 08:12 - Assessment and Plan (1) Cellulitis of left hand Current Visit: Yes Status: Acute Subjective Interval history: Erythema and pain improving. AFVSS GEN: NAD, AAOx3 LUE: Erythema over middle finger MCP joint improving. Able to passively and actively flex and extend digits with minimal pain DNVI with sensation and motor exam intact over M/R/U/AIN/PIN A/P: 42 yo F with L hand cellulitis Continue IV antibiotics per hospitalist Daily dressing changes No plans for further surgery, will s/o Objective Vital signs: Vital Signs Temp Pulse Resp BP Pulse Ox 03/05/18 07:19 97.5 F L 75 18 131/84 96 03/05/18 00:18 98.1 F 71 14 128/77 95 03/04/18 18:47 98.6 F 70 14 145/83 96 03/04/18 15:07 98.9 F 86 16 131/84 95 03/04/18 10:59 98.5 F 81 16 115/71 97 Intake and Output 03/04/18 03/05/18 03/05/18 23:59 07:59 15:59 Intake Total 590 / 590 Balance 590 / 590 Intake: IV Fluids 350 / 350 Zosyn 3.375 GM In 0.9 % Sodium 100 / 100 Chloride (Mini-Bag +) 100 ML @ 25 mls/hr IVPB Q8H BEN Rx#: [id number] Vancocin 1,000 MG In 0.9 % 250 / 250 Sodium Chloride 250 ML @ 167 mls/hr IVPB Q12H BEN Rx#: [id number] Oral 240 / 240 Other: Meal Dinner Percent of Meal Consumed 100% # Voids 1 2 - Labs CBC & BMP: 03/04/18 10:12 03/04/18 13:58 Labs: Abnormal lab results MCH 27.1 pg (28.0-33.3) L 03/04/18 10:12 ESR 47 mm/hr (0-15) H 03/02/18 13:15 Potassium 3.4 mEq/L (3.5-5.1) L 03/04/18 10:12 Chloride 114 mEq/L (98-107) H 03/04/18 10:12 Glucose 128 mg/dL (70-105) H 03/04/18 10:12 C-Reactive Protein 49 mg/L (Less than 10) H 03/02/18 13:15 Consult Discharge Plan - Plan Referrals: Caroline Calderón, REIMBURSEMENT SPECIALIST [Primary Care Provider] -
[2018-03-05] MEDS: Gabapentin 300 MG CAPSULE PO SCH (08:48)
[2018-03-05] MEDS: *HR* HYDROcodone/Acet 5/325 mg TABLET PO PRN (08:52)
[2018-03-05] MEDS: Nicotine 21 MG PATCH.TD24 TD SCH (08:52)
[2018-03-05] MEDS: FLUoxetine HCl Oral Soln 20 MG/5 ML UDC PO SCH (08:53)
[2018-03-05 09:32] VITALS: BP 135/92
[2018-03-05 11:18] LABS: Basophils % 0.7 %; Eosinophils # 0.2 K/mcL (0.0-0.6); Eosinophils % 3.4 %; Hematocrit 37.6 % (35.3-44.9); Hemoglobin 12.5 g/dL (11.5-15.4); Immature Granulocytes % 1.5 % (0-4); Lymphocytes # 1.3 K/mcL (0.6-4.6); Lymphocytes % 21.1 %; Mean Corpuscular HGB Conc 33.2 g/dL (31.6-35.5); Mean Corpuscular Hemoglobin 27.2 pg (28.0-33.3); Mean Corpuscular Volume 81.7 fL (83.0-100.0); Mean Platelet Volume 10.9 fL (9.4-12.4); Monocytes # 0.3 K/mcL (0.0-1.3); Monocytes % 5.5 %; Neutrophils # 4.2 K/mcL (1.6-8.9); Platelet Count 242 K/mcL (140-400); Segmented Neutrophils % 67.8 %
--- NOTE | 2018-03-05 12:05 | Discharge Summary ---
Orders not resulted at time of discharge: Pending orders 03/03/18 11:49 Culture,Anaerobic [RM] Routine Culture,Wound [RM] Routine Date of Encounter: 03/05/18 Time of Encounter: 11:00 - Discharge Diagnosis (1) Cellulitis of left hand Priority: Primary Status: Acute (2) Hepatitis C Priority: Secondary Status: Acute Qualifiers: Viral hepatitis chronicity: chronic Hepatic coma status: without hepatic coma Qualified Code(s): B18.2 - Chronic viral hepatitis C (3) IV drug abuse Priority: Secondary Status: Chronic (4) Tobacco dependence Priority: Secondary Status: Acute (5) Anxiety Priority: Secondary Status: Acute Hospital course: Patient is a 42-year-old female with past medical history significant for IV drug abuse under remission now, MARSA bacteremia and 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 Patient stated almost 3 to 4 weeks ago she noticed a small swelling on the left dorsum of the hand and base of 3rd and 4th fingers. Patient did follow-up with urgent care center where they placed her on doxycycline a week ago. However her symptoms have not improved and they are worsening now. During patients hospital stay orthopedics surgery was consulted with recommendation for incision and drainage. Patients hand improved on IV vancomycin and IV Zosyn. She will be discharged to complete a 10 day course of Bactrim. - Time Spent with Patient Total time spent providing and/or coordinating discharge services: Less than 30 minutes - Discharge Medications Prescriptions: HYDROcodone/Acet 5/325 mg [Ashley 5-325 mg] 1 tab PO Q8HR PRN 5 Days #15 tablet PRN Reason: Moderate Pain Sulfamethoxazole/Trimeth DS [Bactrim DS] 1 each PO BID 10 Days #20 tablet Home Medications: FLUoxetine HCl [Prozac] 60 mg PO DAILY 02/12/18 [History] HydrOXYzine Pamoate [Vistaril] 50 mg PO TID 02/12/18 [History] Pantoprazole Sodium [Protonix] 40 mg PO DAILY 02/12/18 [History] Quetiapine Fumarate [Seroquel] 200 mg PO HS 02/12/18 [History] Gabapentin [Neurontin] 600 mg PO TID 03/02/18 [History] Quetiapine Fumarate [Seroquel] 100 mg PO QAM 03/02/18 [History] HYDROcodone/Acet 5/325 mg [Ashley 5-325 mg] 1 tab PO Q8HR PRN 5 Days #15 tablet 03/05/18 [Rx] Sulfamethoxazole/Trimeth DS [Bactrim DS] 1 each PO BID 10 Days #20 tablet [Rx] Allergies/Adverse Reactions: 3 Allergy/AdvReac Type Severity Reaction Status Date / Time cefdinir [From Omnicef] Allergy Anaphylaxis Verified 03/02/18 17:12 promethazine [From Phenergan] Allergy Rash Verified 02/12/18 16:26 Date of admission: 03/02/18 16:13 Primary care physician: Caroline Calderón CNP - Constitutional Vitals: Temp Pulse Resp BP Pulse Ox 98.9 F 72 16 135/92 99 03/05/18 09:31 03/05/18 09:31 03/05/18 09:31 03/05/18 09:31 03/05/18 09:31 General appearance: Present: A&O X 3, no acute distress, answers questions appropriately - Expanded Upper Extremities Exam Hand wrist exam: Present: swelling (Decreased swelling compared to on admission) - Patient Status Disposition: Home, Self-Care Condition: Fair - Discharge Instructions Instructions: Sulfamethoxazole/Trimethoprim (By mouth), Hydrocodone/ Acetaminophen (By mouth), Cellulitis (DC) Follow Up With: Caroline Calderón CNP [Primary Care Provider] - 03/13/18 2:30 pm
== END 2018-03-05 13:16 | disposition home or self-care (01) | DRG 603 ==
LOC: 3NENU 11:52 → EMEROO 11:52 → SUATTDRO 16:13 → 3NENU 16:53 → 3BNU 03-05 09:25
PROVIDERS: ADMIT Family Medicine; ATTEND Hospitalist